=== PATIENT | female | born 1950 | race Caucasian/White ===

== ENCOUNTER 2022-06-21 13:24 | Observation (INO) | payer MEDICARE, SELFPAY ==
[2022-06-21] VITALS (9 sets, daily range): BP systolic 107–116; BP diastolic 45–94; PULSE 68–116; RESP 22–32; TEMP 34.8–36.3; O2SAT 95–100; BMI 40.4
--- NOTE | ~2022-06-21 | CT_ITS ---
EXAMINATION: CT brain wo con DATE: 06/21/2022 13:35 INDICATION: Unresponsive. TECHNIQUE: Computed tomography (CT) of the head was performed without intravenous contrast. The mA wa s adjusted according to patient size. Iterative reconstruction technique was employed. The dose-lengt h product was 681.00 mGy-cm. COMPARISON: None FINDINGS: Beam-hardening artifact from the skull decreases sensitivity. There is no intracranial hemo rrhage, acute infarction, or abnormal intracranial mass lesion. The ventricles are normal in size. Th ere is near complete opacification right sphenoid sinus with thickening and sclerosis of the sinus wa lls, consistent with chronic sinusitis. There are likely changes of left ocular lens replacement surg lexi. There is a small right mastoid effusion. IMPRESSION: 1. Normal brain. 2. Chronic sinusitis. Reviewed, dictated and finalized at location A.
--- NOTE | ~2022-06-21 | XR_ITS ---
EXAMINATION: XR chest 1V portable INDICATION: Unresponsive TECHNIQUE: Portable AP chest at 1403 hours COMPARISON: None available FINDINGS: Lung volumes are low. Cardiomegaly is noted. There is a diffuse interstitial pattern of the lungs. No pleural effusion or pneumothorax. IMPRESSION: 1. Cardiomegaly with mild pulmonary edema. Reviewed, dictated and finalized at location B.
[2022-06-21 13:33] LABS: Glucose Point of Care 112 mg/dl (65-105)
--- NOTE | 2022-06-21 13:34 | ECG_ITS ---
Measurements Intervals [place] Rate: 75 P: [place]: 0 QRS: 112 QRSD: 141 T: 211 QT: 475 QTc: 533 Interpretive Statements NORMAL SINUS RHYTHM POOR R-WAVE PROGRESSION NONSPECIFIC T-WAVE ABNORMALITY LEFT VENTRICULAR HYPERTROPHY INTRAVENTRICULAR CONDUCTION DELAY [130+ ms QRS DURATION] ABNORMAL ECG NO PREVIOUS ECG AVAILABLE FOR COMPARISON Electronically Signed On 06-21-2022 14:53:04 CDT by Jose A Jones M.D.
[2022-06-21 13:47] LABS: Basophils Absolute Auto 0.04 K/mm3 (0.00-0.10); Basophils Percent Auto 0.2 % (0.0-1.0); Eosinophils Percent Auto 0.6 % (1.0-6.0); Hematocrit 29.7 % (35.0-42.0); Hemoglobin 8.5 g/dL (11.7-13.8); Immature Granulocyte Absolute 0.19 K/mm3 (0.00-0.00); Immature Granulocyte Percent A 1.1 % (0.0-0.0); Immature Platelet Fraction Pct 7.3 % (1.0-7.0); Lymphocytes Absolute Auto 0.82 K/mm3 (1.10-4.50); Lymphocytes Percent Auto 4.9 % (18.0-42.0); Mean Corpuscular HGB Conc 28.6 g/dL (32.0-36.0); Mean Corpuscular Volume 83.9 fL (78.0-102.0); Mean Platelet Volume 11.6 fl (9.2-11.8); Monocytes Absolute Auto 1.03 K/mm3 (0.10-0.90); Monocytes Percent Auto 6.1 % (2.0-11.0); Neutrophils Absolute Auto 14.6 K/mm3 (1.7-7.2); Neutrophils Percent Auto 87.1 % (50.0-70.0); Platelet Count Result 118 K/mm3 (150-420); Red Blood Count 3.54 M/mm3 (4.20-5.40); Red Cell Distribution Width 14.8 % (11.6-14.4); White Blood Count 16.8 K/mm3 (4.8-10.8)
[2022-06-21 14:05] LABS: Alanine Aminotransferase 14 U/L (14-59); Albumin Level 2.7 g/dL (3.4-5.0); Alkaline Phosphatase 61 U/L (46-116); Anion Gap 6 mmol/L (8-16); Aspartate Amino Transferase 22 U/L (15-37); Bilirubin,Total 0.3 mg/dL (0.00-1.00); Blood Urea Nitrogen 35 mg/dL (7-18); Calcium 8.3 mg/dL (8.5-10.1); Carbon Dioxide 27 mmol/L (21-32); Chloride 110 mmol/L (98-108); Estimated Glomerular Filt Rate 31; Glucose 97 mg/dL (70-99); Osmolality Calculated 304 mOsm/kg (285-295); Potassium 5.3 mmol/L (3.5-5.1); Sodium 143 mmol/L (136-145); Total Protein 6.1 g/dL (6.4-8.2); Troponin I 28.5 ng/L (0.00-60.4)
[2022-06-21 14:08] LABS: Ethanol < 3 mg/dL (0-6)
[2022-06-21 14:14] LABS: D Dimer 6.51 mg/L (0.19-0.50); INR 1.2; Prothrombin Time 12.9 Seconds (9.64-11.0)
[2022-06-21 14:17] LABS: Partial Thromboplastin Time < 20.0 SEC (23.90-30.70)
[2022-06-21] MEDS: LORazepam INJ (*CRX) 2 MG/ML VIAL 0.5 MG IV PUSH (14:30)
--- NOTE | 2022-06-21 14:46 | ED.AMS ---
HPI - Altered Mental Status General Chief Complaint: Altered Mental Status Stated Complaint: Ambulace Time Seen by Provider: 06/21/22 13:29 Source: EMS Mode of arrival: EMS Limitations: language barrier, altered mental status and physical limitation History of Present Illness HPI narrative: this is a 72-year-old female that presents via EMS with some state of unresponsiveness and family noted that her last known normal was around 1 in the morning last night, the patient has a history of diabetes and hypertension. Patient is all alert but nonverbal is moving all extremities. Patient appears to a stroke with NIH SScale around 20, history of diabetes hypertension. The patient family members are here the and the daughter and the patient wishes were non intubation and after speaking to family no CPR to be performed. The patient had CPR performed in route here by EMS and so she is post CPR. Otherwise her vitals are stable the patient has a blood pressure 116/94 with a O2 sats initially 96% family does not want the patient to have any CPR are to be intubated, DNR was signed. And the family expressly wishes that to remain in this hospital for a see no reason why she should be transferred. MD complaint: altered mental status and decreased responsiveness Timing confirmed by: family member Severity: severe Consistency of symptoms: constant Related Data Home Medications Medication Instructions Recorded Confirmed acetaminophen 300 mg-codeine 30 mg 1 tablet PO TID 06/21/22 06/21/22 tablet escitalopram oxalate 10 mg tablet 10 mg PO DAILY 06/21/22 06/21/22 furosemide 20 mg tablet 20 mg PO DAILY 06/21/22 06/21/22 lisinopril 20 mg tablet 20 mg PO DAILY 06/21/22 06/21/22 lovastatin 20 mg tablet 20 mg PO DAILY 06/21/22 06/21/22 metformin 1,000 mg tablet 1,000 mg PO BID 06/21/22 06/21/22 venlafaxine 75 mg capsule,extended 75 mg PO DAILY 06/21/22 06/21/22 release 24 hr Allergies Allergy/AdvReac Type Severity Reaction Status Date / Time iohexol Allergy Anaphylaxis Verified 06/21/22 14:23 [From contrast - CT, X-RAY] Penicillins Allergy Anaphylaxis Verified 06/21/22 14:10 Review of Systems Review of Systems: All systems reviewed & are unremarkable except as noted in HPI and below PMFSH Past Medical History Medical History (Updated 06/21/22 @ 14:51 by Loc Hazel MD) Diabetes mellitus HTN (hypertension) Exam Const: General: ill appearing Nutritional Appearance: obese Limitations: altered mental status and physical limitations HENMT: Ears: external ears normal Face/Nose/Sinus: Normal external nose present Eyes: Conjunctivae: conjunctivae normal Pupils: Equal, round and reactive pupils present Neck: Neck: normal visual inspection, no lymphadenopathy and no meningeal signs Chest: Chest palpation & inspection: normal inspection of the chest Resp: Effort & Inspection: normal respiratory effort and tachypneic Auscultation: clear to auscultation bilaterally Cardio: Rate: regular rate Rhythm: abnormal rhythm GI: GI Palp: Yes Soft to palpation Auscultation: normal bowel sounds Skin: General skin exam: normal color Wounds: no wounds Neuro: General: moves all extremities Speech: Abnormal speech present ( nonverbal) Extrem: General: normal to inspection Course Course Emergency Course: patient brought in via via EMS that was unresponsive patient is post CPR and currently her vital signs are stable, the patient did have IO access and her vitals currently stable O2 sats 99% with BiPAP the patient and family expressed the wish a DNR with no intubation and no additional CPR. Patient had an elevated D-dimer, has allergies to IV contrast will start the patient on weight based Lovenox. CT scan of the head was with no acute intracranial bleed [place] [id number] chest x-ray shows cardiomegaly with mild pulmonary edema. 1st dose of weight based Lovenox was given Vital Signs Vital sign
--- NOTE | 2022-06-21 16:53 | ADMGEN ---
This patient, ALEIDA ALBRIGHT, was admitted to 2nd Floor Room 203-1. Patient/family oriented to hospital policies and general routines including ID bracelet, bed and alarms, visiting hours, pain management, procedures, bathroom and other care routines, personal items, smoking policy, room service/diet, and visiting hours. Information on how to activate the Rapid Response Team has been discussed. Patient/Family are encouraged to report perceived risks to care and to ask questions if they do not understand what they are told or what they should do.
--- NOTE | 2022-06-21 16:59 | PC.NURSE ---
tish mathis aware of 3 1/2 lpm per nc is keeping sat at 95%. claims to stop bi pap and cont o2 per nc to keep comfortable.
[2022-06-21] MEDS: DEXTROSE 5%/0.9% SOD CHL 1,000 ML 75 ML IV CONT (17:16)
--- NOTE | 2022-06-21 18:01 | PC.NURSE ---
Patient responsive to pain only. respirations decreased to 20. Does not appear to be experiencing any pain at this time. Urine in is dark and cloudy. Lungs coarse throughout
[2022-06-21 18:13] LABS: Glucose Point of Care 46 mg/dl (65-105)
--- NOTE | 2022-06-21 18:16 | PC.NURSE ---
lab aware of need for stat glucose
[2022-06-21] MEDS: GLUCAGON FOR INJ 1 MG VIAL IM (18:23)
[2022-06-21 18:46] LABS: Glucose 48 mg/dL (70-99)
[2022-06-21 18:50] LABS: Appearance Urine Clear (Clear); Bilirubin Urine Negative (Negative); Color Urine Yellow (Yellow); Glucose Urine UA Negative (Negative); Ketones Urine Trace (Negative); Leukocyte Esterase Ur 1+ LEU/UL (Negative); Nitrate Urine Positive (Negative); Protein Urine 1+ (Negative); Specific Grav Ur >= 1.030 (1.010-1.020); Urobilinogen Urine 0.2 mg/dL (0.2-1.0)
[2022-06-21 18:54] LABS: Glucose Point of Care 134 mg/dl (65-105)
[2022-06-21 18:54] LABS: Amphetamine Screen Urine Negative (Negative); Barbiturate Screen Urine Negative (Negative); Benzodiazepines Screen Urine Positive (Negative); Cannabinoid Screen Urine Negative (Negative); Cocaine Screen Urine Negative (Negative); Methadone Screen Urine Negative (Negative); Opiate Screen Urine Positive (Negative); Phencyclidine Screen Urine Negative (Negative)
[2022-06-21 19:11] LABS: Add Urine Microscopic? YES; Bacteria Urine 3+ /hpf; Blood Urine Trace-lysed (Negative); RBC Urine 0-2 /hpf (0-2); Squamous Epithelial Cell Urine Few /hpf (Few); WBC Urine 16-20 /hpf (0-3)
--- NOTE | 2022-06-21 19:35 | PC.NURSE ---
Mati Ventura, Hospitalist, updated on patient's blood sugars and UA results. New orders received.
[2022-06-21] MEDS: LORazepam INJ (*CRX) 2 MG/ML VIAL 1 MG IV PUSH (20:45)
[2022-06-21] MEDS: levoFLOXacin 500 MG/D5W 100 ML 500 MG/100 ML BAG 100 MG IVPB (21:01)
[2022-06-21] MEDS: MORPHINE SULFATE (*CRX) 2 MG/ML INJ IV PUSH (22:18)
[2022-06-21] MEDS: DEXTROSE 50% 25 GM/50 ML SYRINGE IV PUSH (23:40)
[2022-06-21 23:41] LABS: Glucose Point of Care < 33 mg/dl (65-105)
--- NOTE | 2022-06-21 23:42 | PC.NURSE ---
Blood glucose level at 28, recheck at 33, IVP Dextrose given, will recheck in 15 min. Pt remains unresponsive.
[2022-06-21 23:46] LABS: Glucose Point of Care 33 mg/dl (65-105)
--- NOTE | 2022-06-21 23:56 | PC.NURSE ---
Blood glucose now at 90.
[2022-06-22] LABS: Glucose Point of Care 90 mg/dl (65-105)
[2022-06-22] MEDS: DEXTROSE 50% 25 GM/50 ML SYRINGE IV PUSH ×4 (00:40→06:39)
--- NOTE | 2022-06-22 00:42 | PC.NURSE ---
Blood sugar now at 64, 50% Dextrose 12.5mg IVP given.
[2022-06-22 00:44] LABS: Glucose Point of Care 62 mg/dl (65-105)
--- NOTE | 2022-06-22 01:05 | PC.NURSE ---
NURSE ADVOCATE Shellie notified that patients blood sugar continues to drop after protocol treatment of D5 12.5mg IVP x2. New orders received to increase current IV fluids to 100 ml/hr and to administer another D5 12.5 mg IVP. Patient noted to have increase in discomfort and restlessness. New order received to decrease ativan order from Q6PRN to Q4PRN.
[2022-06-22] MEDS: LORazepam INJ (*CRX) 2 MG/ML VIAL 1 MG IV PUSH ×2 (01:15→05:25)
--- NOTE | 2022-06-22 01:15 | PC.NURSE ---
Patient remains unresponsive to verbal stimuli, noted flailing arms/legs without purpose, SOB with respirations at 26, wheezing continues t/o lung cerna, PRN Ativan given d/t increased agitation and SOB.
[2022-06-22] MEDS: MORPHINE SULFATE (*CRX) 2 MG/ML INJ IV PUSH ×13 (02:20→23:49)
--- NOTE | 2022-06-22 02:20 | PC.NURSE ---
Blood sugar now 116, restlessness continues, PRN Morphine administered.
--- NOTE | 2022-06-22 02:29 | PC.NURSE ---
Scheduled Lovenox 100mg administered Sub-Q to Left lower quadrant, patient did not respond to injection.
[2022-06-22 03:38] LABS: Glucose Point of Care 88 mg/dl (65-105)
--- NOTE | 2022-06-22 04:05 | PC.NURSE ---
Blood sugar 56, PRN Dextrose 12.5mg given IVP, will continue to monitor.
[2022-06-22 04:10] LABS: Glucose Point of Care 56 mg/dl (65-105)
[2022-06-22 04:10] LABS: Glucose Point of Care 116 mg/dl (65-105)
--- NOTE | 2022-06-22 04:18 | PCDIET ---
Blood sugar now at 110, restlessness continues.
[2022-06-22 04:23] LABS: Glucose Point of Care 110 mg/dl (65-105)
[2022-06-22 05:03] LABS: Hematocrit 28.5 % (35.0-42.0); Hemoglobin 8.5 g/dL (11.7-13.8); Mean Corpuscular HGB Conc 29.8 g/dL (32.0-36.0); Mean Corpuscular Volume 80.5 fL (78.0-102.0); Mean Platelet Volume 10.6 fl (9.2-11.8); Platelet Count Result 307 K/mm3 (150-420); Red Blood Count 3.54 M/mm3 (4.20-5.40); Red Cell Distribution Width 14.9 % (11.6-14.4); White Blood Count 14.5 K/mm3 (4.8-10.8)
[2022-06-22 05:23] LABS: Alanine Aminotransferase 23 U/L (14-59); Albumin Level 2.9 g/dL (3.4-5.0); Alkaline Phosphatase 73 U/L (46-116); Anion Gap 10 mmol/L (8-16); Aspartate Amino Transferase 29 U/L (15-37); Bilirubin,Total 0.4 mg/dL (0.00-1.00); Blood Urea Nitrogen 34 mg/dL (7-18); Calcium 8.5 mg/dL (8.5-10.1); Carbon Dioxide 25 mmol/L (21-32); Chloride 109 mmol/L (98-108); Estimated CRCL calculation 31 ml/min; Estimated Glomerular Filt Rate 30; Glucose 89 mg/dL (70-99); Magnesium 1.8 mg/dL (1.8-2.4); Osmolality Calculated 304 mOsm/kg (285-295); Potassium 4.9 mmol/L (3.5-5.1); Sodium 144 mmol/L (136-145); Total Protein 6.5 g/dL (6.4-8.2)
--- NOTE | 2022-06-22 05:25 | PC.NURSE ---
PRN Ativan given for restlessness/SOB.
[2022-06-22] MEDS: DEXTROSE 5% 1,000 ML 1,000 ML 100 ML IVPB (05:55)
--- NOTE | 2022-06-22 05:55 | PCDIET ---
Patient blood sugar at 77, PRN Dextrose 5% IV started at 100mL/hr.
[2022-06-22 05:57] LABS: Glucose Point of Care 77 mg/dl (65-105)
--- NOTE | 2022-06-22 06:00 | PC.NURSE ---
Shellie LOCOMOTIVE CRANE OPERATOR notified that patient blood sugar continues to drop. N.O. received to hang D5% at 100ml/hr per prn order. Patient noted to continue to be very restless with ativan and morphine on board. New order received to increase ativan to 2mg Q4HR PRN.
[2022-06-22 06:38] LABS: Glucose Point of Care 63 mg/dl (65-105)
--- NOTE | 2022-06-22 06:40 | PC.NURSE ---
JASMYNE Hensley notified that patients BS was 66. n.o received to given IVP D5 12.5mg.
--- NOTE | 2022-06-22 06:40 | PC.NURSE ---
Patients spouse Manuel updated about patients situations and her blood sugar issues through the night. States understanding. Manuel states he will be up to the hospital this morning. This nurse notified Manuel that the FAN RUNNER will be calling to talk about patient care plans.
[2022-06-22 07:13] LABS: Glucose Point of Care 186 mg/dl (65-105)
[2022-06-22] MEDS: LORazepam INJ (*CRX) 2 MG/ML VIAL IV PUSH (07:52)
[2022-06-22 08:00] VITALS: BP 128/48; PULSE 86; RESP 36; TEMP 35.5; O2SAT 93
[2022-06-22 08:20] LABS: Glucose Point of Care 74 mg/dl (65-105)
[2022-06-22] MEDS: SCOPOLAMINE 1.5 MG PATCH TRANSDERM (09:10)
[2022-06-22] MEDS: ATROPINE SULFATE 1% OPHTH SOLN 5 ML BOTTLE 1 DROP SUBLINGUAL (09:10)
--- NOTE | 2022-06-22 09:49 | PM.IMHP ---
H&P: HPI History of Present Illness Date/Time: 06/22/22 09:49 Chief Complaint: AMS Narrative: This is a 72-year-old female who presented to the emergency department via EMS that was unresponsive on arrival and coded by EMS. Patient has a past medical history of diabetes and hypertension. Patient remains unresponsive and unable to follow commands. According to ED notes patient appears to have strokelike symptoms in her NIH scale was around 20. Patient CT of the head was negative for CVA, WBCs at 16.8, hemoglobin 8.5, hematocrit 29.7, platelets 118, blood sugar 112 sodium 143 D-dimer 6.51, potassium 5.3, BUN 35, creatinine 1.63, total bilirubin 0.3, AST 22, ALT 14, troponin 28.5. Throughout the night patient condition has declined. Has spoken with family members patient will become comfort measures. Patient will be given medication to keep her comfortable. Review of Systems Review of Systems: ROS unobtainable: Yes unobtainable due to medical condition and unobtainable due to mental status PMFSH Past Medical History Medical History (Updated 06/21/22 @ 17:14 by Loc Hazel MD) Diabetes mellitus HTN (hypertension) Social History Social History Smoking status: Never smoker Alcohol intake: never Substance use: never Spiritual care concerns: No Meds Home Medications and Allergies Home Medications Medication Instructions Recorded Confirmed Type acetaminophen 300 mg-codeine 30 mg 1 tablet PO TID 06/21/22 06/21/22 History tablet escitalopram oxalate 10 mg tablet 10 mg PO DAILY 06/21/22 06/21/22 History furosemide 20 mg tablet 20 mg PO DAILY 06/21/22 06/21/22 History lisinopril 20 mg tablet 20 mg PO DAILY 06/21/22 06/21/22 History lovastatin 20 mg tablet 20 mg PO DAILY 06/21/22 06/21/22 History metformin 1,000 mg tablet 1,000 mg PO BID 06/21/22 06/21/22 History venlafaxine 75 mg capsule,extended 75 mg PO DAILY 06/21/22 06/21/22 History release 24 hr Allergies Allergy/AdvReac Type Severity Reaction Status Date / Time iohexol Allergy Anaphylaxis Verified 06/21/22 14:23 [From contrast - CT, X-RAY] Penicillins Allergy Anaphylaxis Verified 06/21/22 14:10 Vital Signs Vital Signs - 24 hr 06/21/22 13:32 06/21/22 14:15 06/21/22 16:46 Temperature 95.6 F L 94.7 F L Pulse Rate 116 H 113 H 70 Respiratory Rate 22 H 32 H 32 H Blood Pressure 116/94 H 113/45 L Pulse Oximetry 96 99 95 Oxygen Delivery Nasal Cannula BiPAP Nasal Cannula Oxygen Flow Rate 4 3.5 06/21/22 17:04 06/21/22 16:15 06/21/22 20:00 Temperature 97.2 F L Pulse Rate 70 68 70 Respiratory Rate 32 H 30 H 32 H Blood Pressure 110/46 L Pulse Oximetry 95 100 95 Oxygen Delivery Nasal Cannula BiPAP Nasal Cannula Oxygen Flow Rate 3.5 3.5 06/21/22 23:44 06/21/22 16:00 06/22/22 08:00 Temperature 97.4 F L 96 F L Pulse Rate 70 86 Respiratory Rate 24 H 36 H Blood Pressure 107/49 L 128/48 L Pulse Oximetry 99 95 93 Oxygen Delivery Nasal Cannula Nasal Cannula Oxygen Flow Rate 3.5 4 06/21/22 14:30 Temperature Pulse Rate Respiratory Rate 32 H Blood Pressure Pulse Oximetry Oxygen Delivery Oxygen Flow Rate Exam Narrative: GENERAL: Ill appearance, agitated HEAD: normocephalic, atraumatic. EYES: PERRL. Sclera clear/white. Vision is grossly intact. EARS: External ears normal, auditory canals clear and without drainage, TMs normal without perforation. Hearing grossly intact. NOSE: External nose normal with no obvious nasal discharge, nares without redness, no rhinorrhea. THROAT: Mucous membranes moist, posterior pharynx clear. NECK: Neck supple, non-tender without lymphadenopathy, masses or thyromegaly. CARDIOVASCULAR: Regular rate and rhythm without murmurs, gallops, or rubs. RESPIRATORY: Coarse breath sounds tachypnea with labored breathing GASTROINTESTINAL: Abdomen soft, non-tender, nondistended. Bowel sounds are active. No hepato-splenomegal
[2022-06-22] MEDS: LORazepam INJ (*CRX) 2 MG/ML VIAL 3 MG IV PUSH ×10 (12:21→23:47)
[2022-06-22 16:00] VITALS: RESP 34
--- NOTE | 2022-06-22 23:30 | PC.NURSE ---
Pt suctioned of a large amount of thick, white sputum. Pt turned and repositioned to her side; Family remains at bedside.
--- NOTE | 2022-06-22 23:47 | PC.NURSE ---
Pt given MSO4 2 mg IVP and Ativan 3 mg IVP to provide comfort and relieve respiratory distress.
[2022-06-23] VITALS: BP 114/40; PULSE 106; RESP 30; TEMP 35.7
[2022-06-23 01:13] VITALS: TEMP 35.7
[2022-06-23] MEDS: MORPHINE SULFATE (*CRX) 2 MG/ML INJ IV PUSH ×19 (02:15→23:59)
--- NOTE | 2022-06-23 02:15 | PC.NURSE ---
Pt given MSO4 2 mg IVP to relieve discomfort
--- NOTE | 2022-06-23 02:49 | PC.NURSE ---
Mati Ventura NP, contacted to give update on pt's condition and status.
--- NOTE | 2022-06-23 03:07 | PC.NURSE ---
Mati Ventura WELDING EQUIPMENT REPAIRER SUPERVISOR, contacted regarding pt's low urine output and respiratory congestion; New order received and noted.
[2022-06-23] MEDS: FUROSEMIDE INJ 40 MG/4 ML VIAL IV PUSH (03:14)
--- NOTE | 2022-06-23 03:15 | PC.NURSE ---
Pt given lasix 40 mg IVP as ordered.
--- NOTE | 2022-06-23 04:15 | PC.NURSE ---
Pt given MSO4 2 mg IVP to relieve respiratory distress; Pt suctioned of a large amount of sputum. Pt also given atropine 1% one drop sublingual to relieve secretions.
[2022-06-23] MEDS: ATROPINE SULFATE 1% OPHTH SOLN 5 ML BOTTLE 1 DROP SUBLINGUAL ×14 (04:20→23:59)
[2022-06-23 04:45] VITALS: TEMP 35.7
--- NOTE | 2022-06-23 06:08 | WPDPN ---
Progress Note: A&P Assessment and Plan (1) Encephalopathy acute: Code(s): G93.40 - Encephalopathy, unspecified Status: Acute Assessment and Plan: Secondary to CVA CTA negative for CVA, Family does not feel the need to do an MRI to confirm CVA Focal neurological deficiency present Patient will be placed on comfort measures (2) Stroke: Qualifiers: CVA mechanism: unspecified Qualified Code(s): I63.9 - Cerebral infarction, unspecified Code(s): I63.9 - Cerebral infarction, unspecified Status: Acute Assessment and Plan: Secondary to CVA CTA negative for CVA, Family does not feel the need to do an MRI to confirm CVA Focal neurological deficiency present Patient will be placed on comfort measures (3) HTN (hypertension): Code(s): I10 - Essential (primary) hypertension Status: Acute Assessment and Plan: Medication stopped patient will be placed on comfort measures (4) Diabetes mellitus: Code(s): E11.9 - Type 2 diabetes mellitus without complications Status: Acute Assessment and Plan: Patient blood sugar dropped multiple times overnight in the 30s Patient will be placed on comfort measures all medication stopped Subjective Date/time seen: 06/23/22 06:08 Interval history: Patient resting comfortable in bed with family member at bedside.Patient is actively dieing and has secretion buildup. Will continue to support family and give updates. Review of Systems Review of Systems: ROS unobtainable: Yes unobtainable due to medical condition and unobtainable due to mental status Exam Narrative: GENERAL: Ill appearance, agitated HEAD: normocephalic, atraumatic. EYES: PERRL. Sclera clear/white. Vision is grossly intact. EARS: External ears normal, auditory canals clear and without drainage, TMs normal without perforation. Hearing grossly intact. NOSE: External nose normal with no obvious nasal discharge, nares without redness, no rhinorrhea. THROAT: Mucous membranes moist, posterior pharynx clear. NECK: Neck supple, non-tender without lymphadenopathy, masses or thyromegaly. CARDIOVASCULAR: Regular rate and rhythm without murmurs, gallops, or rubs. RESPIRATORY: Coarse breath sounds tachypnea with labored breathing GASTROINTESTINAL: Abdomen soft, non-tender, nondistended. Bowel sounds are active. No hepato-splenomegaly, or palpable masses. No guarding. SKIN: warm, intact with no suspicious lesions or rash, good texture and turgor. NEURO: Unresponsive not responding to stimuli. Focal motor deficiencies present EXTREMITIES: Unpurposeful upper extremity movement Objective Data Vital Signs Vital Signs: Vital Signs - 24 hr 06/22/22 08:00 06/22/22 16:00 06/22/22 20:00 Temperature 96 F L Pulse Rate 86 Respiratory Rate 36 H 34 H Blood Pressure 128/48 L Pulse Oximetry 93 Oxygen Delivery Nasal Cannula Nasal Cannula Oxygen Flow Rate 4 5 5 06/23/22 00:00 06/23/22 01:13 Temperature 96.2 F L 96.2 F L Pulse Rate 106 H Respiratory Rate 30 H Blood Pressure 114/40 L Pulse Oximetry Oxygen Delivery Nasal Cannula Oxygen Flow Rate 4 Intake/Output Intake/Output: Intake & Output 06/20/22 06/21/22 06/22/22 06/23/22 23:59 23:59 23:59 23:59 Intake Total 100 2000.00 0 Output Total 0 650 200 Balance 100 1350.00 -200 Meds/Results Medications: Active Medications Generic Name Dose Route Start Last Admin Trade Name Freq PRN Reason Stop Dose Admin Acetaminophen 325 mg 06/21/22 15:24 Acetaminophen 325 Mg Suppository RECTAL Q4H PRN Mild Pain (1-3) or Fever Atropine Sulfate 1 drop 06/22/22 08:46 06/23/22 04:20 Atropine Sulfate 1% Ophth Soln 5 Ml Bottle SUBLINGUAL 1 drop Q4H PRN Administration Secretions Lorazepam 3 mg 06/22/22 12:01 06/22/22 23:47 Lorazepam Inj (*Crx) 2 Mg/Ml Vial IV PUSH 3 mg Q1HR PRN Administration Anxiety Morphine Sulfate 2 mg
--- NOTE | 2022-06-23 06:38 | PC.NURSE ---
Pt given MSO4 IVP to relieve discomfort and she was also given atropine 1% sublingual to clear secretions.
[2022-06-23] MEDS: LORazepam INJ (*CRX) 2 MG/ML VIAL 3 MG IV PUSH ×16 (07:45→23:59)
--- NOTE | 2022-06-23 07:45 | PC.NURSE ---
Gold band ring removed from each of the patients thumbs and given to patients .
[2022-06-23 08:00] VITALS: BP 110/43; PULSE 87; RESP 32; TEMP 35.5; O2SAT 93
--- NOTE | 2022-06-23 10:00 | PC.NURSE ---
Patient suctioned of small amount of secretions. Tolerated well. Family @ bedside.
[2022-06-23 20:00] VITALS: O2SAT 92
--- NOTE | 2022-06-23 22:45 | PC.NURSE ---
Morphine and Ativan given hourly and Atropine q 2 hours as ordered. Family remains @ bedside. has gone home and other family is staying with patient.
--- NOTE | 2022-06-24 00:30 | PC.NURSE ---
Pateint suctioned of small amount of secretions. No mottling noted. Family remains @ bedside.
[2022-06-24] MEDS: MORPHINE SULFATE (*CRX) 2 MG/ML INJ IV PUSH ×2 (00:57→01:58)
[2022-06-24] MEDS: LORazepam INJ (*CRX) 2 MG/ML VIAL 3 MG IV PUSH ×2 (00:58→01:58)
--- NOTE | 2022-06-24 01:30 | PC.NURSE ---
Morphine and Ativan continue to be given hourly along with Atropine q 2 hours as ordered. Family remains @ bedside.
[2022-06-24] MEDS: ATROPINE SULFATE 1% OPHTH SOLN 5 ML BOTTLE 1 DROP SUBLINGUAL (01:58)
--- NOTE | 2022-06-24 02:40 | PC.NURSE ---
Patient's brother stopped [facility] and said patient has passed. Patient has no BP, no HR and no respirations. confirmed by Ning Crawford RN. 3 family members @ bedside. Family called patient's and this nurse spoke with him and he will not be coming to see patient, saying he already said his goodbye. No other family coming in. Per family, we may contact [facility].
[2022-06-24 03:00] VITALS: O2SAT 90
--- NOTE | 2022-06-24 05:20 | PC.NURSE ---
[facility] transplant service said pt is an eligible candidate for donation. They said they would call the family after 0600 on 06/24/22 to discuss possible donation. They also said pt would have to be placed on ice and not embalmed after 12 hrs.
--- NOTE | 2022-06-24 08:14 | PC.NURSE ---
0810 Verbal Consent obtained from patients Manuel Bowman to sign release of body via telephone. Consent witnessed by Azalea SHI. 0812 Spoke with Markus at [facility], States they are very busy, that there is a note attached to the patients file about our facility not having a morgue. States she will place a call and have someone contact patients family member to assist in decreasing wait time for patient to be transferred to home.
--- NOTE | 2022-06-24 08:43 | PC.NURSE ---
0837 Alexis from [facility] returned call, states family contacted and denied transplant services and body can be release to home. 0839 [facility] provided about [facility] body being release by [facility]. John Crisostomo to come mushroom picker patient.
--- NOTE | 2022-06-24 09:19 | PM.DDS ---
Discharge Summary Date and Time Date of : 06/24/22 Time of : 02:40 Provider Pronounced By: Jm Cabrales RN and Issac Crawford RN Probable Cause of Probable Cause of : possible cva Summary Hospital Course: This is a 72-year-old female who presented to the emergency department via EMS that was unresponsive on arrival and coded by EMS.? Patient has a past medical history of diabetes and hypertension.? Patient remains unresponsive and unable to follow commands.? According to ED notes patient appears to have strokelike symptoms in her NIH scale was around 20.? Patient CT of the head was negative for CVA, WBCs at 16.8, hemoglobin 8.5, hematocrit 29.7, platelets 118, blood sugar 112 sodium 143 D-dimer 6.51, potassium 5.3, BUN 35, creatinine 1.63, total bilirubin 0.3, AST 22, ALT 14, troponin 28.5.? Throughout the night patient condition has declined.? Patient be comfort measure and on 06/24/2022 at 2:40 AM Additional Data Confirmation of as documented by pronouncing clinician: Pupillary Reflex, Palpable Pulses, Response to Stimuli, Heart Tones and Breath Sounds Name of Provider Notified: Mati Ventura NP Time Provider Notified: 03:00 Provider Requests Autopsy: No Date [facility] Notified of : 06/24/22 Time [facility] Notified of : 03:00
--- NOTE | 2022-06-24 09:23 | PC.NURSE ---
John Crisostomo here to transport patient to home. Patients Manuel notified.
== END 2022-06-24 09:30 | disposition expired ==
LOC: CHSED 15:17 → CHS2ND 16:07
PROVIDERS: Nurse Practitioner; Admitting Provider Internal Medicine; Emergency Provider Emergency Medicine; PCP Physician Assistant; Visit Provider Internal Medicine
DX: I63.9 Cerebral infarction, unspecified (principal); G93.40 Encephalopathy, unspecified; E11.9 Type 2 diabetes mellitus without complications; I10 Essential (primary) hypertension; R29.723 NIHSS score 23; Z66 Do not resuscitate; Z79.84 Long term (current) use of oral hypoglycemic drugs; Z51.5 Encounter for palliative care; Z79.899 Other long term (current) drug therapy
CPT/HCPCS: 36415; 36600; 70450; 71045; 80053; 80307; 81001; 82947; 82948; 83735; 84484; 85025; 85027; 85055; 85380; 85610; 85730; 87077; 87086; 87088; 87186; 93005; 96365; 96366; 96367; 96372; 96374; 96375; 96376; 99285; A9270; G0378; J1610; J1650; J1940; J1956; J2060; J2270; J7042; J7070